=== PATIENT | female | born 1945 | race Caucasian/White ===

== ENCOUNTER 2022-06-26 11:00 | Outpatient (RCR) | payer MEDICARE, BC, SELFPAY ==
--- NOTE | 2022-06-05 12:07 | OT.OPODN ---
OT Outpatient Ortho Daily Note OT Outpatient Ortho Daily Note Start: 05/03/22 10:25 Freq: Status: Active Protocol: Document 06/05/22 11:51 JAD (Rec: 06/05/22 12:06 JAD [id number]) E-signed By Olesya Casiano, OTR/L, CLT Type of Note Type of Note Type of Note Daily Note,Note To MD,Recert/ Progress Note Visit Number 5 Insurance Information Insurance Information Medicare B Outpatient History/Precautions Insurance Information Insurance Information Medicare B Current Condition/Medical Diagnosis Treatment Diagnosis R wrist distal w radius fracture with pain, rom loss, weakness Other Precautions Gentle ROM and massage x 6 weeks before adding resistance , weightbearing tasks. Medical/Functional History Medical History Reviewed Yes Prior Level of Function/Mobility Pt with cancer history with bowel resection and Parkinson' s x 20 years. Pt's injury was falling on sidewalk as she was exiting her [employer] [facility] clasd for Parkinson's in [place]. Hisotry of B CTR 20 yrs ago. Social History Other Critical Job Demands is treating for leukemia with infustions 3-4 day/s week in 6 week d Hobbies knitting, reading, grandchildren x 5, age 6 to grown. FLower gardening. [employer] for Parkinson's class at [employer] on [address]. Oriented Mental Status No Concerns Ortho Subjective Subjective Subjective Pt has TFCC achiness with pinching, subsides quickly. pocket of edema at TFCC area. Pain Assessment Pain Present Pain Present Pain Reported Location Left Wrist Description Dull, Achy Intensity 3 OT OP Daily Ortho Note/Assessment Self-Care/Home Management Self-Care/Home Management Comments of stretches. Therapeutic Exercise Therapeutic Exercise Minutes (minutes) 10 Therapeutic Exercise Comments Reivewed HEP for building lumber stacker driver/pinch and in hand stability using yellow therapy putty, 5-10 reps each for total lumber stacker driver, alternating tip pinch, thompson pinch, rolling extension , and thumb thompson pinch. Added weightbearing/ weight shifting exercises at table top with 10-15# pressure , alternating between 75/25% weightbearing to 50/50% to 25/ 75% for 5 sec holds x 10 reps Well tolerated. Manual Therapy Manual Therapy Minutes (minutes) 16 Manual Therapy Comments 16 min--OTR completes STM of all wrist flexor, extensor and interosseous muscle groups with LLPS of WR EX, FL, UD, RD and sup/pronation. Pt with fibrous changes above the splinting margin. and at base of palm. Restricted intra carpal mobility noted during supination and WR FL. Goniometric Comments Goniometric Comments Goniometric Comments 06/05/22-- WR EX 65 AROM and 77 AAROM. WR FL to 50 AROM and 60 AAROM ( 1.5/10 tender across DRUJ). UD to 20 of 35 ( TFCC tender 2/10, impacts fastening bra) and RD improved to 25. Supination springy end feel for 50-70 arc of motion. Pronation WFL, now able to wear watch on the correct side. REissted pinch w L ahdn is 1.5-2/10 tender, momentary. 05/17/22-- L WR WE 50, WR FL 53 ( 57 by the end) RD 8 and UD 40/40 AROM /PROM L WR EX 38 / 53. WR FL 50 / 53. RD 20 of 20. UD 27 of 40. Supination/ pronation lacking 10 degrees/ springy end feel Hand Pinch/Guest Experience Captain Strength Hand Left Guest Experience Captain Strength Position 1 (lbs) 24 Lateral Pinch Strength (lbs) 10 Three Point Pinch (lbs) 9.5 Right Guest Experience Captain Strength Position 1 (lbs) 25 Lateral Pinch Strength (lbs) 10.5 Three Point Pinch (lbs) 10 Edema Assessment Additional Information Comments Guest Experience Captain, pinch and MMT NT on L UE d/t healing fracture precautions. Pt has extra healing warmth surrounding L wrist, mild local edema at Distal radius. Tnenderness more so at TFCC area. HEP-- contrast baths 1-2 times per day. wear splint most of day. off for sleep and 1 hour in am and 1 hour in pm with gentle exercises. (UD/RD, WR EX WR FL glides, wrist circles and hook / table top) OT Objective Data Hand Hand Dominance Right Hand Function 06/05/22-- Weightbearing/ weightshifting on table top ( goal is to return to planking 45 sec and groom small dog x 60 minutes) 05/17/22-- Yellow putty lumber stacker driver, pinching, rolling HEP-- Yellow putty lumber stacker driver roll, thompson and tip pinches. Sensation Sensation Assessment Summary Comments No sensory changes. OT Problems Problems Problems Decreased Strength,Decreased Range of Motion,Decreased Fine Motor,Decreased Coordination, Lifting,Gripping,Pinching Other Problems Opening Containers,Dressing, Fasteners Patient Potential Excellent Assessment Assessment Assessment Pt is now using hand more equally with all daily tasks, can groom dogfor 30-35 minutes at a time. , Still aches to fasten her bra behind her. . Carries lightweight grocery bags and laundry loads between rooms. , DOing light chores around the house. Gretchen is an active 76 y/o female affected by L distal radius fracture with above deficits. Would benefit from skilled OT to address goals below. Occupational Therapy Treatment Plan - OP Potential Rehabilitation Potential Excellent Treatment Plan Treatment Plan Evaluation,Edema Control,Joint Mobilization,Manual Therapy, Therapeutic Exercise Other Treatment Plan 2x/wk x 3 weeks, then 1x /week x 4 weeks Expected Frequency 2x/wk Expected Duration 10 weeks Comment Summary Gentle massage LLPS of L wrist . No resistance until after next MD visit ~ 06/01/22. OT Treatment Minutes Treatment Minutes Timed Treatment Minutes 26 Total Timed Treatment Minutes 26 Occupational Therapy Billing Units Billing Units Manual Therapy 1 Self Care/Home Management 0 Therapeutic Exercise 1 Certification Certification I Certify That: Therapy Services Provided, Therapy Plan Established, Therapy Plan Reviewed
--- NOTE | 2022-07-25 16:54 | OT.OPODN ---
OT Outpatient Ortho Daily Note OT Outpatient Ortho Daily Note Start: 05/03/22 10:25 Freq: Status: Active Protocol: Document 07/25/22 16:33 LCMarianna (Rec: 07/25/22 16:34 JAD [id number]) E-signed By Olesya Casiano, OTR/L, CLT Type of Note Type of Note Type of Note Discharge Note,No Show Comments no show #[phone] 07/25/22 Insurance Information Insurance Information Medicare B Outpatient History/Precautions Current Condition/Medical Diagnosis Treatment Diagnosis R wrist distal w radius fracture with pain, rom loss, weakness Other Precautions Gentle ROM and massage x 6 weeks before adding resistance , weightbearing tasks. Medical/Functional History Medical History Reviewed Yes Prior Level of Function/Mobility Pt with cancer history with bowel resection and Parkinson' s x 20 years. Pt's injury was falling on sidewalk as she was exiting her [employer] [facility] clasd for Parkinson's in [place]. Hisotry of B CTR 20 yrs ago. Social History Other Critical Job Demands is treating for leukemia with infustions 3-4 day/s week in 6 week d Hobbies knitting, reading, grandchildren x 5, age 6 to grown. FLower gardening. [employer] for Parkinson's class at [employer] on [address]. Oriented Mental Status No Concerns Ortho Subjective Subjective Subjective As of 06/05/22- Pt w residual TFCC achiness that waxes/wanes . No sure what activity is causing it; spongy pocket of edema at TFCC area. Tender at end ROm WR FL, radial deviation and supination. ABle to lift an 8# gallon of orange juice with L hand now. Pain Assessment Pain Present Pain Present Pain Reported Location Left Wrist Description Dull, Achy Intensity 3 OT OP Daily Ortho Note/Assessment Self-Care/Home Management Self-Care/Home Management Minutes ( 0 minutes) Self-Care/Home Management Comments of stretches. Therapeutic Exercise Therapeutic Exercise Minutes (minutes) 0 Therapeutic Exercise Comments Upgraded HEP for building picked edge sewing machine operator/pinch and wrist stability using orange therapy band to support balanced mid range strength to support repetitive functional daily tasks like sweeping, lifting and carrying . Educated pt in HEP for concentric WR FL, WR EX and RD planes, adding visual edits and cues for slow lowering; well tolerated x 10 reps each. Manual Therapy Manual Therapy Minutes (minutes) 0 Manual Therapy Comments OTR completes STM of all wrist flexor, extensor and interosseous muscle groups with LLPS of WR EX, FL, UD, RD and sup/pronation. Pt with fibrous changes at TFCC and base of palm. Restricted intra carpal mobility noted during supination and WR FL. Goniometric Comments Goniometric Comments Goniometric Comments 06/26/22-- WE 68, WF 65 AROM and 70 AAROM (3/10 tender TFCC ) UD 32 of 40 ( no pain). RD 25 of 15 , w 2/10 TFCC tender. Die Sinker Apprentice is 25#, 9.95# for thompson pinch and 3 pt. Does putty 1-2x/week) 06/05/22-- WR EX 65 AROM and 77 AAROM. WR FL to 50 AROM and 60 AAROM ( 1.5/10 tender across DRUJ). UD to 20 of 35 ( TFCC tender 2/10, impacts fastening bra) and RD improved to 25. Supination springy end feel for 50-70 arc of motion. Pronation WFL, now able to wear watch on the correct side. REissted pinch w L ahdn is 1.5-2/10 tender, momentary. 05/17/22-- L WR WE 50, WR FL 53 ( 57 by the end) RD 8 and UD 40/40 AROM /PROM L WR EX 38 / 53. WR FL 50 / 53. RD 20 of 20. UD 27 of 40. Supination/ pronation lacking 10 degrees/ springy end feel Hand Pinch/Die Sinker Apprentice Strength Hand Left Die Sinker Apprentice Strength Position 1 (lbs) 24 Lateral Pinch Strength (lbs) 10 Three Point Pinch (lbs) 9.5 Right Die Sinker Apprentice Strength Position 1 (lbs) 25 Lateral Pinch Strength (lbs) 10.5 Three Point Pinch (lbs) 10 Edema Assessment Additional Information Comments Die Sinker Apprentice, pinch and MMT NT on L UE d/t healing fracture precautions. Pt has extra healing warmth surrounding L wrist, mild local edema at Distal radius. Tnenderness more so at TFCC area. HEP-- contrast baths 1-2 times per day. wear splint most of day. off for sleep and 1 hour in am and 1 hour in pm with gentle exercises. (UD/RD, WR EX WR FL glides, wrist circles and hook / table top) OT Objective Data Hand Hand Dominance Right Hand Function 06/26/22- [place] band WR EX, FL, RD, UD. 06/05/22-- Weightbearing/ weightshifting on table top ( goal is to return to planking 45 sec and groom small dog x 60 minutes) 05/17/22-- Yellow putty picked edge sewing machine operator, pinching, rolling HEP-- Yellow putty picked edge sewing machine operator roll, thompson and tip pinches. Sensation Sensation Assessment Summary Comments No sensory changes. OT Problems Problems Problems Decreased Strength,Decreased Range of Motion Other Problems Dressing Patient Potential Excellent Assessment Assessment Assessment Pt is now using hand more equally with all daily tasks, can groom dog for 30-35 minutes at a time. , Still aches to fasten her bra behind her. . Carries lightweight grocery bags and laundry loads between rooms. Doing light chores around the house. Shumway is an active 76 y/o female affected by L distal radius fracture with above deficits. Would benefit from skilled OT to address goals below. Occupational Therapy Treatment Plan - OP Potential Rehabilitation Potential Excellent Treatment Plan Treatment Plan Evaluation,Edema Control,Joint Mobilization,Manual Therapy, Therapeutic Exercise Other Treatment Plan 2x/wk x 3 weeks, then 1x /week x 4 weeks Expected Frequency 2x/wk Expected Duration 10 weeks Comment Summary Pt d/c after 6 visits of OT, last seen 06/26/22. OT Treatment Minutes Treatment Minutes Timed Treatment Minutes 0 Total Treatment Minutes 0 Occupational Therapy Billing Units Billing Units Manual Therapy 0 Self Care/Home Management 0 Therapeutic Exercise 0 Certification Certification I Certify That: Therapy Services Provided, Therapy Plan Established, Therapy Plan Reviewed Discharge Note Discharge Note Discharge Summary Pt d/c after 6 visits of OT, last seen 06/26/22. Pt is now using hand more equally with all daily tasks, can groom dog for 30-35 minutes at a time. , Still aches to fasten her bra behind her. Carries lightweight grocery bags and laundry loads between rooms. Doing light chores around the house. Initial Primary Functional Limitations/ picked edge sewing machine operator/pinch lift, dressing , Concerns opening containers, carrying milk, weakness, ROM loss after L radial fracture Initial Pain Level 2 Pain Level at Discharge 0 Interventions Provided During Treatment Heat,Joint Mobilization,Manual Therapy,Therapeutic Exercise, Self Care/Home Management Recommendations/Reason for Discharge Met All Therapy Goals,Did Not Return to Therapy
== END 2023-05-03 23:59 | disposition home or self-care (01) ==
PROVIDERS: PCP Family Medicine; Visit Provider Physician Assistant Surgical
DX: S52.501D Unspecified fracture of the lower end of right radius, subsequent encounter for closed fracture with routine healing (principal); Z51.89 Encounter for other specified aftercare
CPT/HCPCS: 97110; 97140; 97165; 97535; X5282

== ENCOUNTER 2022-10-25 07:21 | Day surgery (SDC) | payer MEDICARE, BC, SELFPAY ==
[2022-10-25] VITALS (9 sets, daily range): BP systolic 117–149; BP diastolic 60–83; PULSE 67–75; RESP 16–18; TEMP 36.1–36.2; O2SAT 96–98; BMI 27.1
[2022-10-25] MEDS: MIDAZOLAM HCL 1 MG/ML inj IVP (07:52)
[2022-10-25] MEDS: SODIUM CHLORIDE 0.9 % (FLUSH) 10 ML SYRINGE IVF (08:32)
[2022-10-25] MEDS: LACTATED RINGERS 1000 ML 1,000 ML 100 ML IV ×2 (08:32→11:57)
--- NOTE | 2022-10-25 08:45 | CRLHL7_ITS ---
For Patients: As a result of the Century Cures Act, medical imaging exams and procedure reports are released immediately into your electronic medical record. You may view this report before your referring provider. If you have questions, please contact your health care provider. Indication: LEFT DISTAL RADIUS OSTEOTOMY Technique: Two fluoroscopic images of the left wrist. Fluoroscopic time 41.3 seconds. IMPRESSION: Fluoroscopic guidance for orthopedic surgery to the distal radius. Dictated by Abran Stapleton MD @ 10/25/2022 12:02:23 PM (Electronically Signed)
--- NOTE | 2022-10-25 08:46 | SUR.PREOP ---
TIME?OUT:?0847 PT/RN/MDA?VERIFICATION?OF?SURGICAL?SITE,?PROCEDURE,?AND?CONSENT OBTAINED?PRIOR?TO?INVASIVE?PROCEDURE.
[2022-10-25] MEDS: fentaNYL 100 MCG/2 ML inj IVP (08:48)
--- NOTE | 2022-10-25 09:20 | CRLHL7_ITS ---
For Patients: As a result of the Century Cures Act, medical imaging exams and procedure reports are released immediately into your electronic medical record. You may view this report before your referring provider. If you have questions, please contact your health care provider. Indication: NON-OPERATIVE COMPARISON IMAGE FOR LEFT WRIST OSTEOTOMY Technique: Two fluoroscopic images of the right wrist. Fluoroscopic time 2.5 seconds. IMPRESSION: Joint space narrowing and spurring are present at the triscaphe joint. Milder spurring at the radial scaphoid joint and 1st carpometacarpal joint. Dictated by Abran Stapleton MD @ 10/25/2022 12:03:22 PM (Electronically Signed)
[2022-10-25] MEDS: CEFAZOLIN 2 GM in 0.9 % SODIUM CHLORIDE Mini-bag 100 ML IVPB (09:47)
--- NOTE | 2022-10-25 11:40 | P.NB_ITS ---
Nerve Block Nerve Block Time Seen by Provider: 08:55 Date Seen: 10/25/22 Type of block requested by surgeon for post-operative analgesia: axillary Side: left Time out performed: Yes Verification of patient name: Yes Verification of date of : Yes Site marking: site marked Name of person performing procedure: Jaylen Continuous monitoring Was continuous monitoring of O2 sat, B/P, nuclear technologist, recorded every 15 minutes?: Yes Procedure Checklist: sterile prep, needles and gloves Ultrasound guided. Images saved: Yes Medications given in 5ml increments after negative aspiration: Ropivicaine %: 0.5 mL: 30 Needle gauge: 22 Patient tolerated procedure well: Yes Additional comments: Needle noted adjacent to nerve Block Charges Block Charge (with Pro Fee): Brachial Plexus Use of Ultrasound Machine for Block: Yes- US Guidance/pain block
--- NOTE | 2022-10-25 11:54 | P.ORPRC_ITS ---
Procedure Note Date of procedure: 10/25/22 Procedure: PREOPERATIVE DIAGNOSES: 1. Left distal radius fracture malunion POSTOPERATIVE DIAGNOSES: 1. Left distal radius fracture malunion NAME OF OPERATION: 1. Left distal radius corrective osteotomy SURGEON: Corwin Forrest MD VEST FINISHER: Jamie VIERA - Of note, an information services assistant was critical for this case to aide in patient positioning, limb manipulation, tissue retraction, closure, and splinting. ANESTHESIA: Supraclavicular block plus MAC EBL: Less than 20 mL IMPLANTS: Synthes dual column volar locking distal radius fixed angle plate with 1.8 mm distal pegs and 2.4 and 2.7 mm proximal locking and nonlocking screws, respectively. Also, allograft including cortical strut but also morselized allograft bone for bone void filling purposes. TOURNIQUET: 105 minutes at 225 torr. INDICATIONS: The patient is a pleasant, 77-year-old female who sustained a left wrist injury and distal radius fracture in the past. She was initially treated nonoperatively, but unfortunately she continued to have progressive dorsal a ngulation and shortening to the distal radius. This has left her with a significant dysfunction. Given her malalignment and dysfunction, surgery is indicated for a corrective osteotomy. FINDINGS: Closed, 40 degree dorsally angulated and 4.5 mm shortened distal radius malunion. PROCEDURE: Following a thorough discussion of risks, benefits, and alternatives, consent was obtained and the operative extremity was marked. The patient was brought to the operating room and placed supine on the operating table. Induction of anesthesia was achieved. Appropriate time out was performed identifying proper patient, site and procedure. [1 gram of iv Ancef] was administered within 1 hour of incision preoperatively. The left upper extremity was prepped and draped in the appropriate sterile formerly [facility] ion using ChloraPrep prep. The limb was exsanguinated and the tourniquet inflated. A longitudinal incision was made overlying the FCR tendon. Sharp incision through skin and subcutaneous tissue allowed identification of the FCR tendon. The superficial sheath was sharply divided, the tendon retracted ulnarly, and the deep fascial sheath also released. The FPL was retracted ulnarly and the pronator quadratus was sharply released from the radial pain and distal border of the radius and subperiosteally elevated. A subperiosteal elevation was then performed around the radial side of the dist al radius and dorsal. This included releasing the brachial radialis to minimize its deforming force. After elevating the posterior periosteum at the level of the osteotomy, we also mobilized the periosteum proximally to create a periosteal sleeve that would move with the corrected alignment to create a dorsal ruiz both to maintain the graft but also to provide vascularity. According to the preoperative plan, proximally a 45 degree dorsally angulated cut was planned and completed in line with/parallel to the articular surface. A 3 hole fixed angle volar locking plate was selected. The distal fragment was mobilized and a cortical strut allograft was cut/shaped to fit the dorsal cortical opening but also wedge it towards the more volar surface of the distal radius. As this did not occupy the full breath of the radius, the remaining portion was filled in with morselized allograft. The plate was temporarily stabilized with a combination of K-wires and olive wires. After the graft was realigned for both length and on the sagittal plane (R primary corrective maneuvers), the plate was temporarily fixed to this and confirmed on C-arm fluoroscopic imaging to have appropriate position and alignment. Distal locking pegs were then applied and confirmed to be extra- articular. Proximal nonlocking and locking screws were then applied to help compress the bone and plate together initially, and to then stabilize it. At this stage, the wound was thoroughly irrigated with normal saline. The morselized allograft was then packed around the cortical strut fragment which was helping with strength for holding. The tourniquet was deflated at this stage and hemostasis achieved. Closure performed with 2-0 Vicryl for the pronator quadratus. 3-0 Vicryl for the subcutaneous, and 4-0 statafix for subcuticular closure. Dressings were applied along with a volar/dorsal splint. The patient was awoken from anesthesia and transferred to PACU in stable condition. PLAN: 1. Elevate operative extremity. 2. Ice, acetominphen or ibuprofen PRN. 3. [Percocet] for pain as needed. 4. Follow up with PA visit in 10-16 days for wound check and splint removal. Apply short-arm cast at that stage. Total immobilization time should be 3 weeks postop. Then, return for cast removal and wrist splint application along with OT referral.
--- NOTE | 2022-10-25 12:15 | W.ANESCHARGE ---
Anesthesia Charges Start Date/Time Anesthesia Start Date: 10/25/22 Anesthesia Start Time: 09:34 Stop Date/Time Anesthesia Stop Date: 10/25/22 Anesthesia Stop Time: 12:15 Summary Emergency: No Extremes of Age: Over 70-CPT 80092
--- NOTE | 2022-10-25 12:35 | W.ANESCHARGE ---
Anesthesia Charges Start Date/Time Anesthesia Start Date: 10/25/22 Anesthesia Start Time: 09:34 Stop Date/Time Anesthesia Stop Date: 10/25/22 Anesthesia Stop Time: 12:15 Summary Emergency: No Extremes of Age: Over 70-CPT 95980
== END 2022-10-25 13:30 | disposition home or self-care (01) ==
PROVIDERS: Visit Provider Orthopaedic Surgery Sports Medicine
PROC: (CPT 25575; principal; 2022-10-25 08:45)
DX: S52.592A Other fractures of lower end of left radius, initial encounter for closed fracture (principal)
CPT/HCPCS: 25400; 01830; 64415; 73100; 76942; 99100; A4580; C1713; C1762; J0690; J2250; J2704; J2795; J3010; J7120

== ENCOUNTER 2022-10-25 18:34 | Emergency (ER) | payer MEDICARE, BC, SELFPAY ==
[2022-10-25 19:02] VITALS: BP 124/77; PULSE 85; RESP 18; TEMP 36.6; O2SAT 96
--- NOTE | 2022-10-25 19:15 | ED_ITS ---
HPI - General Adult General Time Seen by Provider: 19:15 Date Seen: 10/25/22 Chief complaint: Unspecified Complaint, Adult Stated complaint: Broken wrist healed crooked, no control over lower Time Seen by Provider: 10/25/22 18:59 Source: patient Mode of arrival: ambulatory Limitations: no limitations History of Present Illness HPI narrative: Patient is a pleasant 77 year white female who had surgery on her wrist this morning, and she was concerned that she still can not feel her hand and that it might have healed wrong. The patient had a plate and pins. Looking at her surgery chart she had a axillary nerve block, and had a plate with pins in her wrist. She has no other complaints. She really isn't having pain in her arm, has a little bit of throbbing in her upper arm and shoulder. No falls or injuries. Related Data Home Medications Medication Instructions Recorded Confirmed bupropion HCl 150 mg tablet,12 hr mg PO Q12H 04/20/22 08/29/22 sustained-release cholecalciferol (vitamin D3) 125 5,000 unit PO DAILY 04/20/22 10/25/22 mcg (5,000 unit) tablet coenzyme Q10 100 mg capsule 100 mg PO .Bedtime 04/20/22 10/25/22 levothyroxine 200 mcg capsule 200 mcg PO QDAY 04/20/22 10/25/22 pravastatin 40 mg tablet 40 mg PO QDAY 04/20/22 10/25/22 sertraline 50 mg tablet 50 mg PO QDAY 04/20/22 10/25/22 carbidopa 25 mg-levodopa 100 mg 1 tab PO DAILY 10/25/22 10/25/22 tablet nadolol 40 mg tablet (Corgard) 40 mg PO DAILY 10/25/22 10/25/22 Previous Rx's Medication Instructions Recorded oxycodone-acetaminophen 5 mg-325 1 tab PO Q4-8H PRN pain #25 tabs 10/25/22 mg tablet (Percocet) Allergies Allergy/AdvReac Type Severity Reaction Status Date / Time atorvastatin Allergy Mild Aching Verified 10/25/22 08:33 Sulfa (Sulfonamide Allergy Verified 10/25/22 08:33 Antibiotics) Review of Systems Narrative: No trouble with the splint, no bleeding good warmth of the hand. [facility] Medical History Abdominal pain Acute epidemic vertigo Colon cancer Depression Elevated cholesterol Fracture of wrist History of vitamin D deficiency Hyperlipidemia Hypertension Hypothyroid Ileitis Malignant neoplasm metastatic to colon Paraneoplastic neuropathy Parkinsons disease Sensorineural hearing loss of both ears Urge incontinence Vertigo Surgical History History of partial colectomy Family History Mother Breast cancer Ovarian cancer Depression Bleeding disorder Maternal Grandmother Stroke High cholesterol Paternal Grandmother Breast cancer Ovarian cancer Osteoporosis Paternal Grandfather Coronary artery disease Sister Colon cancer Brother Thyroid disease Seizure disorder Other Acute epidemic vertigo Social History Smoking Status: Never smoker How often do you have a drink containing alcohol: never AUDIT-C Alcohol total score: 0 Caffeine: Yes Are you using contraception or practicing any form of control: No Exam Narrative: Exam Narrative: Objective: Patient's splint is intact, she has warm fingers in the splint and hand. She is non sensate consistent with a block. She has no discoloration. No proximal arm pain to palpation, no redness or swelling. Const: Vital Signs, click to edit/add: Vital Signs - 24 hr 10/25/22 19:02 Temperature 97.8 F Pulse Rate [Right Pulse Oximeter] 85 Respiratory Rate 18 Blood Pressure [Ri ght Upper Arm] 124/77 Pulse Oximetry 96 Oxygen Delivery Me thod Room Air Course Vital Signs Vital signs: Initial Vital Signs Temperature 97.8 F 10/25/22 19:02 Temperature Source Temporal Artery Scan 10/25/22 19:02 Pulse Rate 85 10/25/22 19:02 Respiratory Rate 18 10/25/22 19:02 Blood Pressure 124/77 10/25/22 19:02 Blood Pressure Mean 92 10/25/22 19:02 Blood Pressure Position Sitting 10/25/22 19:02 Pulse Oximetry 96 10/25/22 19:02 Oxygen Delivery Method 10/25/22 19:02 Vital Signs Temperature 97.8 F 10/25/22 19:02 Pulse Rate 85 10/25/22 19:02 Respiratory Rate 18 10/25/22 19:02 Blood Pressure 124/77 10/25/22 19:02 Pulse Oximetry 96 10/25/22 19:02 Oxygen Delivery Method 10/25/22 19:02 Temperature 97.8 F 10/25/22 19:02 Pulse Rate 85 10/25/22 19:02 Respiratory Rate 18 10/25/22 19:02 Blood Pressure 124/77 10/25/22 19:02 Pulse Oximetry 96 10/25/22 19:02 Oxygen Delivery Method 10/25/22 19:02 Medical Decision Making MDM Narrative Medical decision making narrative: Patient had actually block this morning I think she still experiencing effects the block. When she starts getting throbbing in her wrist she can start taking oral pain medicine. I explained that the block may last for 12-24 hours. She can recheck with us as needed. Otherwise call the orthopedic clinic for follow- up as planned. She has pain medicine at home. She has support system here with her. Discharge Plan Discharge Clinical Impression: Postop check Patient Disposition: Home w/ Parent or Adult Condition: Stable Additional Instructions: Patient will elevate the arm, take medicines as needed, update Orthopedics as needed Activity Level: Light activity Discharge Diet: Regular Prescriptions: No Action sertraline 50 mg tablet 50 mg PO QDAY pravastatin 40 mg tablet 40 mg PO QDAY levothyroxine 200 mcg capsule 200 mcg PO QDAY bupropion HCl 150 mg tablet sustained-release 12 hr PO Q12H coenzyme Q10 100 mg capsule 100 mg PO .Bedtime cholecalciferol (vitamin D3) 125 mcg (5,000 unit) tablet 5,000 unit PO DAILY carbidopa-levodopa 25-100 mg tablet 1 tab PO DAILY Label Comments: TAKE 3 TABLETS BY MOUTH THREE TIMES DAILY ON AN EMPTY STOMACH nadolol [Corgard] 40 mg tablet 40 mg PO DAILY oxycodone-acetaminophen [Percocet] 5-325 mg tablet 1 tab PO Q4-8H PRN (Reason: pain) Qty: 25 0RF Follow Up/Referrals: Provider,Not a Local [Primary Care Provider] - Stand Alone Forms: [employer] Info Instructions
== END 2022-10-25 19:26 | disposition home or self-care (01) ==
PROVIDERS: Emergency Provider Family Medicine
DX: Z98.890 Other specified postprocedural states (principal)
CPT/HCPCS: 99282

== ENCOUNTER 2022-10-26 03:39 | Outpatient (CLI) | payer MEDICARE, BC, SELFPAY | END 2022-10-26 03:40 | disposition home or self-care (01) | LOC: AMB 09:48 | PROVIDERS: Visit Provider Family Medicine | DX: M79.602 Pain in left arm (principal); Z98.890 Other specified postprocedural states | CPT/HCPCS: A0425; A0427 ==

== ENCOUNTER 2022-10-26 04:00 | Emergency (ER) | payer MEDICARE, BC, SELFPAY ==
[2022-10-26 04:05] VITALS: BP 152/78; PULSE 88; RESP 16; TEMP 36.2; O2SAT 97
--- NOTE | 2022-10-26 04:35 | ED.GENADULT ---
HPI - General Adult General Chief complaint: Extremity Pain/Injury, Upper Stated complaint: Post Op Wrist Pain Time Seen by Provider: 10/26/22 04:03 Source: patient and EMS Mode of arrival: EMS History of Present Illness HPI narrative: 77-year-old female presents with uncontrolled pain in the left wrist. I review NC that she was seen yesterday afternoon for numbness in the wrist. It was determined that her nerve block had not likely worn off at the time and there were no signs of complications. Note is reviewed. Patient reports that she started having increased pain this evening, took what she claims as OxyContin at 4:30 a.m.. Review of the records shows that this was likely Percocet as this is what she was prescribed at discharge. She does argue with me somewhat regarding the truth in this. hurts that she set her alarm for midnight to take another Percocet and did so. She reports that it did not adequately relieve her pain, therefore she called EMS. She has not been using Tylenol or ibuprofen despite that these are clearly noted in her discharge instructions. She reports that she does have her discharge instructions but has not really reviewed them. Her is at home to help her and is in good health. She denies any new injury or trauma. She does have some movement in the fingers and has improving sensation from her last ED visit. She denies fever, vomiting, acute illness. She has no other concerns today. EMS did administer 25 mcg of fentanyl which lowered her pain from a 9 to a 2. Patient reports her pain is still Currently a 2. Past medical history reviewed, unchanged from ED visit yesterday and preop exam. Medications, allergies verified. Social and family history verified. ROS is negative for other generalized, musculoskeletal, cardiovascular, respiratory or neurological or skin changes. Related Data Home Medications Medication Instructions Recorded Confirmed bupropion HCl 150 mg tablet,12 hr mg PO Q12H 04/20/22 08/29/22 sustained-release cholecalciferol (vitamin D3) 125 5,000 unit PO DAILY 04/20/22 10/25/22 mcg (5,000 unit) tablet coenzyme Q10 100 mg capsule 100 mg PO .Bedtime 04/20/22 10/25/22 levothyroxine 200 mcg capsule 200 mcg PO QDAY 04/20/22 10/25/22 pravastatin 40 mg tablet 40 mg PO QDAY 04/20/22 10/25/22 sertraline 50 mg tablet 50 mg PO QDAY 04/20/22 10/25/22 carbidopa 25 mg-levodopa 100 mg 1 tab PO DAILY 10/25/22 10/25/22 tablet nadolol 40 mg tablet (Corgard) 40 mg PO DAILY 10/25/22 10/25/22 Previous Rx's Medication Instructions Recorded oxycodone-acetaminophen 5 mg-325 1 tab PO Q4-8H PRN pain #25 tabs 10/25/22 mg tablet (Percocet) Allergies Allergy/AdvReac Type Severity Reaction Status Date / Time atorvastatin Allergy Mild Aching Verified 10/25/22 08:33 Sulfa (Sulfonamide Allergy Verified 10/25/22 08:33 Antibiotics) PFSH PFS Medical History Abdominal pain Acute epidemic vertigo Colon cancer Depression Elevated cholesterol Fracture of wrist History of vitamin D deficiency Hyperlipidemia Hypertension Hypothyroid Ileitis Malignant neoplasm metastatic to colon Paraneoplastic neuropathy Parkinsons disease Sensorineural hearing loss of both ears Urge incontinence Vertigo Surgical History History of partial colectomy Family History Mother Breast cancer Ovarian cancer Depression Bleeding disorder Maternal Grandmother Stroke High cholesterol Paternal Grandmother Breast cancer Ovarian cancer Osteoporosis Paternal Grandfather Coronary artery disease Sister Colon cancer Brother Thyroid disease Seizure disorder Other Acute epidemic vertigo Social History Smoking Status: Never smoker Do you use any of these nicotine containing products: None How often do you have a drink containing alcohol: never AUDIT-C Alcohol total score: 0 Non-prescribed substance use: denies use Caffeine: Yes Are you using contraception or practicing any form of control: No service: No Exam Const: Vital Signs, click to edit/add: Vital Signs - 24 hr 10/26/22 04:05 Temperature 97.2 F L Pulse Rate [Right Pulse Oximeter] 88 Respiratory Rate 16 Blood Pressure [Ri ght Upper Arm] 152/78 H Pulse Oximetry 97 Oxygen Delivery Me thod Room Air Documenting provider has reviewed patient's vital signs: yes Common normals: no apparent distress Other: Hard of hearing but answers questions appropriately. HENMT: Common normals: normocephalic Head and scalp: normocephalic Mouth: oral and palatal mucosa normal Throat: posterior oropharynx normal Eye: Common normals: conjunctivae normal General eye: normal appearance of both eyes Conjunctiva: conjunctiva(e) normal Resp: Common normals: normal respiratory effort and clear to auscultation bilaterally Effort & inspection: able to speak in complete sentences Auscultation: clear to auscultation bilaterally Cardio: Common normals: regular rhythm, S1 normal heart sound, no murmurs and peripheral pulses 2+ throughout Rhythm: regular rhythm Heart sounds: S1 normal Peripheral pulses: pulses 2+ throughout Extremity: Other: Left wrist is in postoperative splint, properly placed. The fingers do have range of motion, are warm with adequate capillary refill and no obvious deficits. Opposite right wrist and hand are normal. Neuro: Speech: speech normal Motor exam: no movement abnormalities noted Psych: Attitude: engaged Mood and affect: euthymic mood Insight: fair Judgement: fair Other: Suspecting mild memory impairment, does seem appropriate for medical decision making Skin: Common normals: no rashes or lesions noted General skin exam: no rashes or lesions noted Course Vital Signs Vital signs: Initial Vital Signs Temperature 97.2 F L 10/26/22 04:05 Temperature Source Temporal Artery Scan 10/26/22 04:05 Pulse Rate 88 10/26/22 04:05 Pulse Rhythm 10/26/22 04:05 Respiratory Rate 16 10/26/22 04:05 Blood Pressure 152/78 H 10/26/22 04:05 Blood Pressure Mean 102 10/26/22 04:05 Blood Pressure Position Supine 10/26/22 04:05 Pulse Oximetry 97 10/26/22 04:05 Oxygen Delivery Method 10/26/22 04:05 Vital Signs Temperature 97.2 F L 10/26/22 04:05 Pulse Rate 88 10/26/22 04:05 Respiratory Rate 16 10/26/22 04:05 Blood Pressure 152/78 H 10/26/22 04:05 Pulse Oximetry 97 10/26/22 04:05 Oxygen Delivery Method 10/26/22 04:05 Temperature 97.2 F L 10/26/22 04:05 Pulse Rate 88 10/26/22 04:05 Respiratory Rate 16 10/26/22 04:05 Blood Pressure 152/78 H 10/26/22 04:05 Pulse Oximetry 97 10/26/22 04:05 Oxygen Delivery Method 10/26/22 04:05 Medical Decision Making MDM Narrative Medical decision making narrative: uncontrolled postoperative pain with no signs of complication. Pain improved with administration of medication. The fentanyl will have a short half-life, therefore I recommend 5 mg of oral oxycodone and 600 mg of ibuprofen prior to discharge, she agrees to this. Weak sensibly discuss the need for Tylenol, ibuprofen and are narcotic pain medication. Reviewed use of the oxycodone and Percocet as needed. She is safe to discharge home and contact her surgeon with any further concerns. Discharge Plan Discharge Clinical Impression: Post-operative pain Patient Disposition: Home w/ Parent or Adult Condition: Improved Instructions: Pain Management After Surgery (DC) Additional Instructions: charge paperwork that your given after surgery does clearly explain that you will need medicines to manage your pain. You were given a prescription for oxycodone / acetaminophen, also known as Percocet. This is used in addition to Tylenol and ibuprofen. The oxycodone can cause significant confusion in older adults so we like to avoid it if at all possible. You are not taking Tylenol and ibuprofen adequately to treat your pain. You were given ibuprofen 600 mg here in the emergency department. You may take 600 mg every 6 hours for pain. You should also take Tylenol but as we discussed, the oxycodone does have some Tylenol mixed with it as well. You are allowed 4000 total mg of Tylenol per day. One standard Tylenol has 325 mg, just like the oxycodone does. You may take up to 6 tablets of the oxycodone per day. You would still have 5 leftover Tylenol as to take as you see fit for pain. Once you are no longer using the oxycodone, you may take up to 4000 mg of standard Tylenol through the day. If the pain becomes severe again, please remember to make full use of your Tylenol and ibuprofen before taking more of the oxycodone. There are no signs of complication with the hand. Activity Level: Activity as Tolerated Discharge Diet: Regular Prescriptions: No Action sertraline 50 mg tablet 50 mg PO QDAY pravastatin 40 mg tablet 40 mg PO QDAY levothyroxine 200 mcg capsule 200 mcg PO QDAY bupropion HCl 150 mg tablet sustained-release 12 hr PO Q12H coenzyme Q10 100 mg capsule 100 mg PO .Bedtime cholecalciferol (vitamin D3) 125 mcg (5,000 unit) tablet 5,000 unit PO DAILY carbidopa-levodopa 25-100 mg tablet 1 tab PO DAILY Label Comments: TAKE 3 TABLETS BY MOUTH THREE TIMES DAILY ON AN EMPTY STOMACH nadolol [Corgard] 40 mg tablet 40 mg PO DAILY oxycodone-acetaminophen [Percocet] 5-325 mg tablet 1 tab PO Q4-8H PRN (Reason: pain) Qty: 25 0RF Follow Up/Referrals: Provider,Not a Local [Primary Care Provider] - Stand Alone Forms: [employer] Info Instructions
[2022-10-26] MEDS: OXYCODONE 5 MG TABLET PO (04:41)
[2022-10-26] MEDS: IBUPROFEN 200 MG TABLET 600 MG PO (04:42)
[2022-10-26 04:45] VITALS: BP 144/74; PULSE 81; RESP 16; O2SAT 96
== END 2022-10-26 05:16 | disposition home or self-care (01) ==
LOC: ED 04:44
PROVIDERS: Emergency Provider Family Medicine
DX: G89.18 Other acute postprocedural pain (principal)
CPT/HCPCS: 99282; 99283; 99284; A9270

== ENCOUNTER 2022-12-26 17:00 | Outpatient (RCR) | payer MEDICARE, BC, SELFPAY ==
--- NOTE | 2022-11-24 16:31 | OT.OPOE ---
OT Outpatient Ortho Eval OT Outpatient Ortho Eval Start: 11/24/22 08:14 Freq: Status: Active Protocol: Document 11/24/22 08:15 AMB (Rec: 11/24/22 16:26 AMB [id number]) E-signed By Bruna Mcnamara, OTR/L, CLT, SENIOR L[employer]ATION [place] OT OP Ortho Eval Details Type Type Eval Complexity Low Insurance Information Insurance Information Medicare B Outpatient History/Precautions Current Condition/Medical Diagnosis Referring Provider Dr Forrest Treatment Diagnosis DUNCAN THIBODEAUX corrective osteotomy Date of Onset 10/25/22 Medical Conditions Depression,HTN,CA,Metal Implants Other Conditions PMH: Abdominal pain Acute epidemic vertigo Colon cancer with hx of colon resection. Depression Elevated cholesterol Fracture of wrist History of vitamin D deficiency Hyperlipidemia Hypertension Hypothyroid Ileitis Malignant neoplasm metastatic to colon Paraneoplastic neuropathy Parkinsons disease Sensorineural hearing loss of both ears Urge incontinence Vertigo Medications: bupropion HCl mg PO Q12H carbidopa-levodopa 25-100 mg 1 tab PO DAILY cholecalciferol (vitamin D3) 5 ,000 units PO DAILY coenzyme Q10 100 mg PO . 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 Oriented Mental Status No Concerns Ortho Subjective Subjective Subjective Pt feels she is doing ok, her average pain is 2-3/10 but can be a 5/10 with activity. Pt has been using Tylenol for her pain when needed. 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 Pain Assessment Pain Present Pain Present Pain Reported Location Wrist Intensity 5 Elbow Goniometric Elbow Right Active Flexion (135-150 degrees) 140 Active Extension (0 degrees) 0 H Active Pronation 50 Active Supination 55 ROM Limitations Pain Wrist Goniometric Wrist Right Active Flexion (70-90 degrees) 45 L Active Extension (60-70 degrees) 30 L Active Ulnar Deviation (20-30 degrees) 20 Active Radial Deviation (15-20 degrees) 12 L ROM Limitations Pain Goniometric Comments Goniometric Comments Goniometric Comments 11/24/22 Pt is able to complete a full fist and demonstrates full opposition to base of 5th digit. Edema Assessment Additional Information Comments 11/24/22 very mild swelling noted at the volar wrist. OT Objective Data Hand Hand Dominance Right OT Problems Problems Problems Decreased Strength,Decreased Range of Motion,Decreased Dexterity,Decreased Fine Motor ,Decreased Coordination, Gripping,Pinching Other Problems Writing,Opening Containers, Dressing,Computer,Fasteners Patient Potential Good Assessment Assessment Assessment Pt presents to OT with pain, weakness and limited ROM of her LUE. 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 Pt will benefit from skilled OT intervention to address limitations and restore full, pain-free use of her LUE. Occupational Therapy Treatment Plan - OP Potential Rehabilitation Potential Good Set Goals Goals Set with Patient Yes Goals Goals 1. Pt will be independent and compliant with HEP in order to resume full, pain-free use of the involved UE. 3 weeks 2. Pt will demonstrate full, pain-free AROM of the involved UE in order to improve ability to grasp and hold. 6 weeks 3. 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 8 weeks. Target Date 02/21/23 Progress set Treatment Plan Treatment Plan Evaluation,Edema Control,Joint Mobilization,Manual Therapy, Splinting,Wound Care/Scar Management,Therapeutic Exercise,Therapeutic Activities,Self-Care/Home Management,Education Expected Frequency 1-2x Week Expected Duration 6-8 Weeks Certification Certification I Certify That: Therapy Services Provided, Therapy Plan Established, Therapy Plan Reviewed Recertification Information Recertification Information Initial Certification Date 11/24/22 Recertification Due Date 02/22/23 Reasons to Continue Skilled Therapy Initiating OT for rehabilitation of pt's LUE hand, wrist, forearm following LUE distal radius corrective osteotomy. Rehabilitation Potential Good Continued Plan of Care and Interventions See above Provider Signature Shows Agreement With POC & Medical Necessity Physician Comment/Change Comment or Changes Physician NPI Number #
== END 2023-05-03 23:59 | disposition home or self-care (01) ==
PROVIDERS: PCP Orthopaedic Surgery Sports Medicine; Visit Provider Physician Assistant Surgical
DX: Z98.890 Other specified postprocedural states (principal); Z51.89 Encounter for other specified aftercare
CPT/HCPCS: 97110; 97140; 97165; X5282